=== PATIENT | male | born 1990 | race Caucasian/White ===

== ENCOUNTER 2017-11-04 16:21 | Emergency (ER) | payer OTHER ==
[~2017-11-04 16:21] MED LIST: IBUP-56 PO
[2017-11-04] MEDS ORDERED: ALLO-119 PO (16:25)
[2017-11-04] MEDS ORDERED: LORazepam 2 MG/ML VIAL IVP ONE (16:35)
--- NOTE | 2017-11-04 16:38 | ER Report ---
History and Physical Time Seen By MD: 16:30 Hx. 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 saying that several hours prior to presentation at some left-sided neck pain which then migrated into his jaw eyes and said he had difficulty swallowing for a few moments he said he felt his pulse was racing and he felt palpitations in his chest is under a lot of stress and pressure from completing his Masters thesis in dissertation patient denies any alcohol or drug use patient denies any recent history of trauma or falls patient hassignificant past medical history no history of cardiac abnormalities on arrival to the emergency department his neck pain is resolving still has some heaviness in his chest patient denies any nausea vomiting diarrhea fever chills or abdominal pain and discomfort REVIEW OF SYSTEMS: Respiratory: No cough, no dyspnea. Cardiovascular: Chest pain with palpitations Gastrointestinal: No vomiting, no abdominal pain. Musculoskeletal: No back pain. Remainder of the 14 system rev: Yes Allergies: Coded Allergies: Cephalosporins (Verified Allergy, Mild, 11/04/17) Penicillins (Verified Allergy, Mild, 11/04/17) Home Meds Reported Medications Allopurinol (ZYLOPRIM) 300 Mg Tablet, 300 MG PO QDAY, TAB 11/04/17 Ibuprofen (IBUPROFEN) 200 Mg Tablet, 4 TAB PO Q4HR, TAB 10/22/15 Reviewed Nurses Notes: Yes Old Medical Records Reviewed: Yes Hx Smoking: No Hx Substance Use Disorder: No Hx Alcohol Use: No Constitutional Vital Sign - Last 24 Hours 11/04/17 11/04/17 11/04/17 11/04/17 16:22 16:25 16:27 16:30 Temp 98.2 Pulse 112 Resp 16 B/P (MAP) 150/120 150/123 (132) 145/105 (118) 137/99 (112) Pulse Ox 95 O2 Delivery Room Air 11/04/17 11/04/17 11/04/17 11/04/17 16:36 16:51 17:00 17:05 Pulse 109 102 103 Resp 28 21 26 B/P (MAP) 135/104 (114) Pulse Ox 98 96 97 11/04/17 11/04/17 17:20 17:30 Pulse 109 Resp 33 B/P (MAP) 134/103 (113) Pulse Ox 99 Physical Exam General Appearance: The patient is alert, has no immediate need for airway protection and no current signs of toxicity. [ ] Eyes: Pupils equal and round no injection. Respiratory: Chest is non tender, lungs are clear to auscultation. Cardiac: Tachycardic rate of 122[ ] Gastrointestinal: Abdomen is soft and non tender, no masses, bowel sounds normal. Musculoskeletal: Neck: Neck is supple and non tender. Extremities have full range of motion and are non tender. Skin: No rashes or lesions. [ ] DIFFERENTIAL DIAGNOSIS: After history and physical exam differential diagnosis was considered for anxiety cardiac ischemia palpitations Medical Decision Making Data Points Result Diagram: 11/04/17 1650 11/04/17 1650 Laboratory Hematology Test 11/04/17 16:50 Red Blood Count 6.19 M/uL (4.00-5.60) Mean Corpuscular Volume 83.2 fL (80.0-96.0) Mean Corpuscular Hemoglobin 29.1 pg (26.0-33.0) Mean Corpuscular Hemoglobin Concent 35.0 g/dL (32.0-36.0) Red Cell Distribution Width 14.0 % (11.5-14.5) Mean Platelet Volume 9.4 fL (7.2-11.1) Neutrophils (%) (Auto) 71.4 % (39.4-72.5) Lymphocytes (%) (Auto) 20.4 % (17.6-49.6) Monocytes (%) (Auto) 6.8 % (4.1-12.4) Eosinophils (%) (Auto) 1.1 % (0.4-6.7) Basophils (%) (Auto) 0.3 % (0.3-1.4) Nucleated RBC Relative Count (auto) 0.1 /100WBC Neutrophils # (Auto) 4.6 K/uL (2.0-7.4) Lymphocytes # (Auto) 1.3 K/uL (1.3-3.6) Monocytes # (Auto) 0.4 K/uL (0.3-1.0) Eosinophils # (Auto) 0.1 K/uL (0.0-0.5) Basophils # (Auto) 0.0 K/uL (0.0-0.1) Nucleated RBC Absolute Count (auto) 0.00 K/uL D-Dimer Quantitative (PE/DVT) < 0.27 ug/ml (0-0.50) Sodium Level 141 mmol/L (137-145) Potassium Level 3.7 mmol/L (3.5-5.0) Chloride Level 99 mmol/L (98-107) Carbon Dioxide Level 27 mmol/L (22-30) Blood Urea Nitrogen 12 mg/dl (9-21) Creatinine 1.10 mg/dl (0.66-1.25) Glomerular Filtration Rate Calc > 60.0 Random Glucose 104 mg/dl (75-110) Calcium Level 9.7 mg/dl (8.4-10.2) Total Bilirubin 1.6 mg/dl (0.2-1.3) Aspartate Amino Transf (AST/SGOT) 35 U/L (0-35) Alanine Aminotransferase (ALT/SGPT) 45 U/L (0-56) Alkaline Phosphatase 86 U/L (0-126) Troponin I < 0.012 ng/ml Total Protein 8.0 gm/dl (6.3-8.2) Albumin 4.7 g/dl (3.5-5.0) Urine Opiates Screen Negative Urine Barbiturates Screen Negative Ur Tricyclic Antidepressants Screen Negative Urine Phencyclidine Screen Negative Urine Amphetamines Screen Negative Urine Benzodiazepines Screen Negative Urine Cocaine Screen Negative Urine Cannabinoids Screen Negative Chemistry Test 11/04/17 16:50 White Blood Count 6.4 k/uL (4.5-11.0) Red Blood Count 6.19 M/uL (4.00-5.60) Hemoglobin 18.0 g/dL (14.0-18.0) Hematocrit 51.5 % (42.0-52.0) Mean Corpuscular Volume 83.2 fL (80.0-96.0) Mean Corpuscular Hemoglobin 29.1 pg (26.0-33.0) Mean Corpuscular Hemoglobin Concent 35.0 g/dL (32.0-36.0) Red Cell Distribution Width 14.0 % (11.5-14.5) Platelet Count 185 K/uL (150-450) Mean Platelet Volume 9.4 fL (7.2-11.1) Neutrophils (%) (Auto) 71.4 % (39.4-72.5) Lymphocytes (%) (Auto) 20.4 % (17.6-49.6) Monocytes (%) (Auto) 6.8 % (4.1-12.4) Eosinophils (%) (Auto) 1.1 % (0.4-6.7) Basophils (%) (Auto) 0.3 % (0.3-1.4) Nucleated RBC Relative Count (auto) 0.1 /100WBC Neutrophils # (Auto) 4.6 K/uL (2.0-7.4) Lymphocytes # (Auto) 1.3 K/uL (1.3-3.6) Monocytes # (Auto) 0.4 K/uL (0.3-1.0) Eosinophils # (Auto) 0.1 K/uL (0.0-0.5) Basophils # (Auto) 0.0 K/uL (0.0-0.1) Nucleated RBC Absolute Count (auto) 0.00 K/uL D-Dimer Quantitative (PE/DVT) < 0.27 ug/ml (0-0.50) Glomerular Filtration Rate Calc > 60.0 Calcium Level 9.7 mg/dl (8.4-10.2) Total Bilirubin 1.6 mg/dl (0.2-1.3) Aspartate Amino Transf (AST/SGOT) 35 U/L (0-35) Alanine Aminotransferase (ALT/SGPT) 45 U/L (0-56) Alkaline Phosphatase 86 U/L (0-126) Troponin I < 0.012 ng/ml Total Protein 8.0 gm/dl (6.3-8.2) Albumin 4.7 g/dl (3.5-5.0) Urine Opiates Screen Negative Urine Barbiturates Screen Negative Ur Tricyclic Antidepressants Screen Negative Urine Phencyclidine Screen Negative Urine Amphetamines Screen Negative Urine Benzodiazepines Screen Negative Urine Cocaine Screen Negative Urine Cannabinoids Screen Negative Coagulation Test 11/04/17 16:50 D-Dimer Quantitative (PE/DVT) < 0.27 ug/ml Toxicology Test 11/04/17 16:50 Urine Opiates Screen Negative Urine Barbiturates Screen Negative Ur Tricyclic Antidepressants Screen Negative Urine Phencyclidine Screen Negative Urine Amphetamines Screen Negative Urine Benzodiazepines Screen Negative Urine Cocaine Screen Negative Urine Cannabinoids Screen Negative ED Course/Re-evaluation ED Course ED clinical course 27-year-old male came in with atypical chest discomfort tachycardia after a milligram of Ativan is pulse returned to about 96-98 negative dimer cardiac markers no active chest pain at time of discharge feeling better most likely this is anxiety related based upon his elevated work schedule and his graduate education advised him to try to regulate his stress get more sleep pastries eating correctly and follow up with primary care return if symptoms worsen Decision to Disposition Date: Nov 04, 2017 Decision to Disposition Time: 17:49 Depart Departure Latest Vital Signs Vital Signs Date Time Temp Pulse Resp B/P (MAP) Pulse Ox O2 Delivery O2 Flow Rate FiO2 11/04/17 17:30 134/103 (113) 11/04/17 17:20 109 33 99 11/04/17 16:22 98.2 Room Air Impression: Primary Impression: Anxiety Condition: Improved Disposition: HOME OR SELF-CARE Referrals: CHRISTIANO CAMERON MD 5 Days Patient Instructions: Anxiety (DC) JOSE WHITE MD Nov 04, 2017 16:38
--- NOTE | 2017-11-04 16:41 | EKG ---
FACILITY: [facility] - [place] PATIENT NAME: BORIS HOOPER : [id number] MR: [id number] V: [id number] EXAM DATE: ORDERING PHYSICIAN: JOSE WHITE TECHNOLOGIST: BULL Wing Reason : CP Blood Pressure : / mmHG Vent. Rate : 110 BPM Atrial Rate : 110 BPM P-R Int : 124 ms QRS Dur : 104 ms QT Int : 348 ms P-R-T Axes : 051 088 022 degrees QTc Int : 470 ms Sinus tachycardia Nonspecific T wave abnormality Abnormal ECG No previous ECGs available Confirmed by ZENIA RITTER ([id number]) on 11/05/2017 6:07:26 AM Referred By: JUS Confirmed By:ZENIA RITTER
[2017-11-04 17:09] LABS: PLATELET COUNT, AUTOMATED 185 K/uL (150-450)
--- NOTE | 2017-11-04 17:33 | RADIOLOGY IMAGING REPORT ---
FACILITY: [facility] - [place] PATIENT NAME: Gerald Stroud : 1990 MR: [id number] V: [id number] EXAM DATE: ORDERING PHYSICIAN: JOSE WHITE TECHNOLOGIST: Location: [facility] - [place] Patient: Gerald Stroud : 1990 Visit/Account:[id number] Date of Sevice: 11/04/2017 2 VIEWS CHEST INDICATION: Chest pain. COMPARISON: None available FINDINGS: Cardiomediastinal silhouette and pulmonary vessels within normal limits. There is no focal infiltrate or lobar consolidation. There is no pneumothorax or pleural effusion. No nodule. Upper abdomen is unremarkable. No acute bony abnormality. IMPRESSION: 1. No acute cardiopulmonary process. Report Dictated By: Richmond Hayden at 11/04/2017 5:27 PM Report E-Signed By: Richmond Hayden at 11/04/2017 5:29 PM WSN:[id number]
[2017-11-04] MEDS ORDERED: NS(*) 0.9% 1000 ML BAG 1,000 ML IV ONE (17:35)
[2017-11-04 17:59] VITALS: BP 134/105
== END 2017-11-04 18:51 | disposition home or self-care (01) ==
LOC: ER 16:32
DX: F41.9 Anxiety disorder, unspecified (principal)
CPT/HCPCS: 71046; 80305; 84484; 85025; 85379; 93005; 96361; 96374; 99284; J2060; J7030; 82040; 82247; 82310; 82374; 82435; 82565; 82947; 84075; 84132; 84155; 84295; 84450; 84460; 84520

== ENCOUNTER 2018-05-13 17:08 | Emergency (ER) | payer SELFPAY ==
[~2018-05-13 17:08] MED LIST changes: +ALLO-119 PO
[2018-05-13] MEDS ORDERED: NS(*) 0.9% 1000 ML BAG 1,000 ML IV ONE (17:27)
[2018-05-13] MEDS ORDERED: ASPIRIN 81 MG CHEW PO ONE (17:30)
--- NOTE | 2018-05-13 17:39 | ER Report ---
History and Physical Time Seen By MD: 17:21 Hx. of Stated Complaint: Pt reports left chest and jaw pain that started about 1500 today. HPI/ROS CHIEF COMPLAINT: Chest pain HISTORY OF PRESENT ILLNESS: 27-year-old male patient presents to emergency room with complaint of chest pain. Patient states this started just this afternoon approximately 2 hours ago. Patient states he started having pain in the left shoulder. States that it migrated to the left side of the chest and up the neck into his jaw. Patient states pain started originally at the front of the mouth and then transition to the back. Patient denies having any fevers, chills, nausea, vomiting or diarrhea. Patient did have some shortness of breath. He states that he has not taken any medication for this. He did have an episode earlier this year in which she was diagnosed with anxiety. He states that he did have some chest pain with working out after that. He states that he has not been working out much since then. REVIEW OF SYSTEMS: Respiratory: As noted above. Cardiovascular: As noted above Gastrointestinal: No vomiting, no abdominal pain. Musculoskeletal: No back pain. Allergies: Coded Allergies: Cephalosporins (Verified Allergy, Mild, 05/13/18) Penicillins (Verified Allergy, Mild, 05/13/18) Home Meds Active Scripts Cyclobenzaprine Hcl (CYCLOBENZAPRINE HCL) 10 Mg Tablet, 10 MG PO TID PRN for MUSCLE SPASMS, #15 TAB Prov:ISH CROUCH [employer]OP[employer] MANAGER 05/13/18 Reported Medications Ibuprofen (IBUPROFEN) 200 Mg Tablet, 4 TAB PO Q4HR, TAB 10/22/15 Discontinued Reported Medications Allopurinol (ZYLOPRIM) 300 Mg Tablet, 300 MG PO QDAY, TAB 11/04/17 Past Medical/Surgical History Patient has a past medical history of gout. Patient denies any surgical history. Reviewed Nurses Notes: Yes Hx Smoking: No Hx Substance Use Disorder: No Hx Alcohol Use: No Constitutional Vital Sign - Last 24 Hours 05/13/18 05/13/18 05/13/18 05/13/18 17:15 17:16 17:27 17:30 Temp 98.1 Pulse 110 107 110 Resp 16 29 B/P (MAP) 135/105 (115) 135/105 131/102 (112) 127/95 (106) Pulse Ox 97 97 96 O2 Delivery Room Air 12/13/18 05/13/18 05/13/18 05/13/18 17:45 18:00 18:15 18:30 Pulse 110 108 105 Resp 11 12 15 35 B/P (MAP) 127/102 (110) 141/101 (114) 138/104 (115) 133/105 (114) Pulse Ox 95 95 96 05/13/18 05/13/18 05/13/18 05/13/18 18:45 19:00 19:15 19:30 Pulse 120 122 126 137 Resp 35 36 34 42 B/P (MAP) 129/88 (102) 130/100 (110) 127/86 (100) 120/94 (103) Pulse Ox 96 94 95 94 Physical Exam General Appearance: The patient is alert, has no immediate need for airway protection and no current signs of toxicity. Respiratory: Chest is non tender, lungs are clear to auscultation. Cardiac: regular rate and rhythm Gastrointestinal: Abdomen is soft and non tender, no masses, bowel sounds normal. Musculoskeletal: Neck: Neck is supple and non tender. Extremities have full range of motion and are non tender. Skin: No rashes or lesions. DIFFERENTIAL DIAGNOSIS: After history and physical exam differential diagnosis was considered for chest pain including but not limited to myocardial ischemia, pericarditis pulmonary embolus, chest wall pain, pleural inflammation and pulmonary infectious causes. Medical Decision Making Data Points Result Diagram: 05/13/18 1726 05/13/18 1726 Laboratory Hematology Test 05/13/18 17:26 05/13/18 18:58 Red Blood Count 6.27 M/uL (4.00-5.60) Mean Corpuscular Volume 84.3 fL (80.0-96.0) Mean Corpuscular Hemoglobin 28.9 pg (26.0-33.0) Mean Corpuscular Hemoglobin Concent 34.2 g/dL (32.0-36.0) Red Cell Distribution Width 13.2 % (11.5-14.5) Mean Platelet Volume 9.5 fL (7.2-11.1) Neutrophils (%) (Auto) 72.9 % (39.4-72.5) Lymphocytes (%) (Auto) 20.7 % (17.6-49.6) Monocytes (%) (Auto) 5.5 % (4.1-12.4) Eosinophils (%) (Auto) 0.5 % (0.4-6.7) Basophils (%) (Auto) 0.4 % (0.3-1.4) Nucleated RBC Relative Count (auto) 0.1 /100WBC Neutrophils # (Auto) 7.2 K/uL (2.0-7.4) Lymphocytes # (Auto) 2.0 K/uL (1.3-3.6) Monocytes # (Auto) 0.5 K/uL (0.3-1.0) Eosinophils # (Auto) 0.0 K/uL (0.0-0.5) Basophils # (Auto) 0.0 K/uL (0.0-0.1) Nucleated RBC Absolute Count (auto) 0.01 K/uL D-Dimer Quantitative (PE/DVT) 0.29 ug/ml (0-0.50) Sodium Level 140 mmol/L (137-145) Potassium Level 3.9 mmol/L (3.5-5.0) Chloride Level 101 mmol/L (98-107) Carbon Dioxide Level 29 mmol/L (22-30) Blood Urea Nitrogen 15 mg/dl (9-21) Creatinine 1.10 mg/dl (0.66-1.25) Glomerular Filtration Rate Calc > 60.0 Random Glucose 111 mg/dl (75-110) Calcium Level 9.7 mg/dl (8.4-10.2) Total Bilirubin 1.6 mg/dl (0.2-1.3) Aspartate Amino Transf (AST/SGOT) 39 U/L (0-35) Alanine Aminotransferase (ALT/SGPT) 47 U/L (0-56) Alkaline Phosphatase 75 U/L (0-126) Total Protein 8.3 g/dl (6.3-8.2) Albumin 4.8 g/dl (3.5-5.0) Troponin I < 0.012 ng/ml Chemistry Test 05/13/18 17:26 05/13/18 18:58 White Blood Count 9.8 k/uL (4.5-11.0) Red Blood Count 6.27 M/uL (4.00-5.60) Hemoglobin 18.1 g/dL (14.0-18.0) Hematocrit 52.9 % (42.0-52.0) Mean Corpuscular Volume 84.3 fL (80.0-96.0) Mean Corpuscular Hemoglobin 28.9 pg (26.0-33.0) Mean Corpuscular Hemoglobin Concent 34.2 g/dL (32.0-36.0) Red Cell Distribution Width 13.2 % (11.5-14.5) Platelet Count 202 K/uL (150-450) Mean Platelet Volume 9.5 fL (7.2-11.1) Neutrophils (%) (Auto) 72.9 % (39.4-72.5) Lymphocytes (%) (Auto) 20.7 % (17.6-49.6) Monocytes (%) (Auto) 5.5 % (4.1-12.4) Eosinophils (%) (Auto) 0.5 % (0.4-6.7) Basophils (%) (Auto) 0.4 % (0.3-1.4) Nucleated RBC Relative Count (auto) 0.1 /100WBC Neutrophils # (Auto) 7.2 K/uL (2.0-7.4) Lymphocytes # (Auto) 2.0 K/uL (1.3-3.6) Monocytes # (Auto) 0.5 K/uL (0.3-1.0) Eosinophils # (Auto) 0.0 K/uL (0.0-0.5) Basophils # (Auto) 0.0 K/uL (0.0-0.1) Nucleated RBC Absolute Count (auto) 0.01 K/uL D-Dimer Quantitative (PE/DVT) 0.29 ug/ml (0-0.50) Glomerular Filtration Rate Calc > 60.0 Calcium Level 9.7 mg/dl (8.4-10.2) Total Bilirubin 1.6 mg/dl (0.2-1.3) Aspartate Amino Transf (AST/SGOT) 39 U/L (0-35) Alanine Aminotransferase (ALT/SGPT) 47 U/L (0-56) Alkaline Phosphatase 75 U/L (0-126) Total Protein 8.3 g/dl (6.3-8.2) Albumin 4.8 g/dl (3.5-5.0) Troponin I < 0.012 ng/ml Coagulation Test 05/13/18 17:26 D-Dimer Quantitative (PE/DVT) 0.29 ug/ml EKG/Imaging Imaging EXAMINATION: Chest 2 Views HISTORY: Chest pain. COMPARISON: 11/04/2017. FINDINGS: The lungs are clear. No focal consolidation or pleural fluid. No pneumothorax. Normal cardiomediastinal silhouette, with normal heart size and pulmonary vascularity. Visualized osseous structures are unremarkable. IMPRESSION: Negative chest. Report Dictated By: Francisco Heller MD at 05/13/2018 6:51 PM Report E-Signed By: Francisco Heller MD at 05/13/2018 6:52 PM EXAMINATION: Thoracic Spine 3 views HISTORY: Chest pain. COMPARISON: None. FINDINGS: Normal alignment along the thoracic spine. No radiographic evidence of acute fracture or subluxation. Vertebral body height is maintained throughout the thoracic spine. Normal mineralization. IMPRESSION: Unremarkable thoracic spine series. Report Dictated By: Francisco Heller MD at 05/13/2018 6:50 PM Report E-Signed By: Francisco Heller MD at 05/13/2018 6:51 PM ED Course/Re-evaluation ED Course Patient was admitted to exam room, history and physical were obtained. Differential diagnoses were considered. On examination lungs are clear, heart is regular but tachycardic, abdomen is soft nontender. An EKG was done which showed a sinus tachycardia. A CBC, CMP, troponin, EKG, d-dimer, chest x-ray were done. Those did a x-ray of the thoracic spine as he was complaining of some back pain. The labs were unremarkable. He did have a negative troponin. With pain starting at 3:00 and persisted until he was here in emergency room we did go ahead and do a repeat troponin, those done at 7:00. The results were also negative. X-rays were read by radiology as negative. I discussed the findings with patient. I bel ieve that with the pain starting in the left shoulder and then migrating to the left side of the chest as well as up into the jaw that this is likely muscle spasm. As a result we will go ahead and give him a prescription for a muscle relaxer. I will like him follow-up with his primary care provider here in the next week. Is my believe patient probably refer him to physical therapy if they do not find any other causes for the muscle spasms. I discussed this with the patient who verbalized understanding and agreement with plan. Decision to Disposition Date: May 13, 2018 Decision to Disposition Time: 19:34 Depart Departure Latest Vital Signs Vital Signs Date Time Temp Pulse Resp B/P (MAP) Pulse Ox O2 Delivery O2 Flow Rate FiO2 05/13/18 19:30 137 42 120/94 (103) 94 05/13/18 17:16 98.1 Room Air Impression: Primary Impression: Chest pain Additional Impression: Muscle spasm Condition: Improved Disposition: HOME OR SELF-CARE New Scripts Cyclobenzaprine Hcl (CYCLOBENZAPRINE HCL) 10 Mg Tablet 10 MG PO TID PRN for MUSCLE SPASMS, #15 TAB Prov: ISH CROUCH 05/13/18 Patient Instructions: Chest Pain (ED) Additional Instructions: Increase fluid intake. Get plenty of rest. Continue with low impact aerobic activity. Follow up with your primary care provider in the next week. Take the medication as prescribed. Return to the ER if condition worsens. Problem Qualifiers Primary Impression: Chest pain Chest pain type: other chest pain Qualified Codes: R07.89 - Other chest pain ISH CROUCH May 13, 2018 17:39
--- NOTE | 2018-05-13 17:41 | EKG ---
FACILITY: [facility] - [place] PATIENT NAME: BORIS HOOPER : [id number] MR: [id number] V: [id number] EXAM DATE: ORDERING PHYSICIAN: ISH CROUCH TECHNOLOGIST: IGOR Test Reason : CP Blood Pressure : / mmHG Vent. Rate : 106 BPM Atrial Rate : 106 BPM P-R Int : 128 ms QRS Dur : 094 ms QT Int : 336 ms P-R-T Axes : 036 077 032 degrees QTc Int : 446 ms Sinus tachycardia Nonspecific ST abnormality Abnormal ECG When compared with ECG of 04-NOV-2017 16:36, No significant change was found Confirmed by ZENIA RITTER ([id number]) on 05/13/2018 8:02:04 PM Referred By: MIKO Confirmed By:ZENIA RITTER
[2018-05-13 17:42] LABS: PLATELET COUNT, AUTOMATED 202 K/uL (150-450)
--- NOTE | 2018-05-13 18:55 | RADIOLOGY IMAGING REPORT ---
FACILITY: [facility] - [place] PATIENT NAME: Gerald Stroud : 1990 MR: [id number] V: [id number] EXAM DATE: ORDERING PHYSICIAN: ISH CROUCH TECHNOLOGIST: Location: [facility] - [place] Patient: Gerald Stroud : 1990 Visit/Account:[id number] Date of Sevice: 05/13/2018 EXAMINATION: Thoracic Spine 3 views HISTORY: Chest pain. COMPARISON: None. FINDINGS: Normal alignment along the thoracic spine. No radiographic evidence of acute fracture or subluxation. Vertebral body height is maintained throughout the thoracic spine. Normal mineralization. IMPRESSION: Unremarkable thoracic spine series. Report Dictated By: Francisco Heller MD at 05/13/2018 6:50 PM Report E-Signed By: Francisco Heller MD at 05/13/2018 6:51 PM WSN:[id number]
--- NOTE | 2018-05-13 18:56 | RADIOLOGY IMAGING REPORT ---
FACILITY: [facility] PATIENT NAME: Gerald Stroud : 1990 MR: [id number] V: [id number] EXAM DATE: ORDERING PHYSICIAN: ISH CROUCH TECHNOLOGIST: Location: [facility] [place] Patient: Gerald Stroud : 1990 Visit/Account:[id number] Date of Sevice: 05/13/2018 EXAMINATION: Chest 2 Views HISTORY: Chest pain. COMPARISON: 11/04/2017. FINDINGS: The lungs are clear. No focal consolidation or pleural fluid. No pneumothorax. Normal cardiomedias tinal silhouette, with normal heart size and pulmonary vascularity. Visualized osseous structures ar e unremarkable. IMPRESSION: Negative chest. Report Dictated By: Francisco Heller MD at 05/13/2018 6:51 PM Report E-Signed By: Francisco Heller MD at 05/13/2018 6:52 PM WSN:[id number]
[2018-05-13 19:30] VITALS: BP 120/94
[2018-05-13] MEDS ORDERED: CYCL10TA29 PO (19:37)
== END 2018-05-13 19:54 | disposition home or self-care (01) ==
LOC: ER 17:18
DX: R07.89 Other chest pain (principal); M62.838 Other muscle spasm
CPT/HCPCS: 36415; 84484; 85025; 85379; 93005; 96360; 99284; J7030; 71046; 72072; 82040; 82247; 82310; 82374; 82435; 82565; 82947; 84075; 84132; 84155; 84295; 84450; 84460; 84520